=== PATIENT | female | born 1985 | race Hispanic/Latino ===

== ENCOUNTER 2018-11-10 16:44 | Emergency (ER) | payer SELFPAY ==
--- NOTE | 2018-11-10 17:01 | ED.PDOC ---
History of Present Illness - General Chief Complaint: Abdominal Pain Stated Complaint: abdominal pain Time Seen by Provider: 11/10/18 16:50 Information Source: patient, family Exam Limitations: no limitations - History of Present Illness Initial Comments: Sherrie Arzate 33 y/o female brought by friend to ER after she had right sided dull abdominal pain about 1-2 hours ago and also had been having brownish vaginal discharge today.No N/V/D,no hematuria,no diarrhea.Stated had positive test using (OTC) test.Her LMP-27 Sep 2018;[id number] RIA 03 Jul 2019;6 weeks EGA Abdominal Pain Onset Location: RUQ, RLQ Pain Radiation: no radiation Quality: moderate Timing/Duration: 1-3 hours Improving Factors: nothing Worsening Factors: nothing Associated Symptoms: other - see hpi Review of Systems - Review of Systems Gastrointestinal/Abdominal: States: see HPI All other Systems: Reviewed and Negative, No Change from Baseline Past Medical History (General) - Patient Medical History Hx Hypertension: No Hx Thyroid Disease: No Surgical History: no surgical history - Female History Patient is a Female of Child Bearing Age (10 -59 yrs old): Yes Hx Last Menstrual Period: 09/27/18 Patient : Yes Expected Date of Delivery:: 07/03/19 Hx Gestational Age: 6 - weeks Family Medical History - Family History Mother Family History: No Known Physical Exam - Physical Exam General Appearance: Alert, Comfortable, No apparent distress Eyes, Ears, Nose, Throat Exam: normal ENT inspection, pharynx normal Neck: supple, normal inspection Respiratory: lungs clear, normal breath sounds, no respiratory distress Cardiovascular/Chest: normal peripheral pulses, regular rate, rhythm, no murmur Peripheral Pulses: No deficit Gastrointestinal/Abdominal: soft, tenderness - right side abdomen Pelvic Exam: discharge - whitish, tender adnexa - right side Back Exam: no CVA tenderness, no vertebral tenderness Extremity: no pedal edema, no calf tenderness Neurologic: alert, oriented x 3 Skin Exam: normal color, warm/dry Progress - Progress Progress: 11/10/18 18:39 Vital Signs - 8 hr 11/10/18 11/10/18 16:45 17:45 Temperature 98.2 F 98.9 F Pulse Rate [ 79 72 Left Arm] Respiratory 16 16 Rate Blood Pressure 120/71 106/66 [Left Arm] O2 Sat by Pulse 100 100 Oximetry - Results/Orders Results/Orders: 11/10/18 17:32 Urine Culture Stat Laboratory Results - last 24 hr 11/10/18 11/10/18 11/10/18 17:25 17:25 17:25 WBC 6.4 RBC 4.52 Hgb 11.4 L Hct 35.6 L MCV 78.9 L MCH 25.3 L MCHC 32.1 L RDW 15.5 H Plt Count 204 MPV 8.0 Absolute Neuts (auto) 4.00 Absolute Lymphs (auto) 1.80 Absolute Monos (auto) 0.50 Absolute Eos (auto) 0.10 Absolute Basos (auto) 0.00 Neutrophils % 63.2 Lymphocytes % 27.7 Monocytes % 7.6 Eosinophils % 1.1 Basophils % 0.4 Sodium 138 Potassium 3.6 Chloride 108 Carbon Dioxide 21 Anion Gap 12.6 BUN 10 Creatinine 0.69 BUN/Creatinine Ratio 14.5 Random Glucose 96 Serum Osmolality 274.6 L Calcium 8.8 Total Bilirubin 0.4 AST 16 ALT 14 Alkaline Phosphatase 60 Serum Total Protein 7.2 Albumin 4.2 Globulin 3.0 Albumin/Globulin Ratio 1.4 Serum HCG, Qual Positive Beta HCG, Quant Urine Color Urine Appearance Urine pH Ur Specific [place] Urine Protein Urine Glucose (UA) Urine Ketones Urine Blood Urine Nitrite Urine Bilirubin Urine Urobilinogen Ur Leukocyte Esterase Urine RBC Urine WBC Ur Epithelial Cells Urine Bacteria Patient ABO/Rh 11/10/18 11/10/18 11/10/18 17:25 17:30 17:32 WBC RBC Hgb Hct MCV MCH MCHC RDW Plt Count MPV Absolute Neuts (auto) Absolute Lymphs (auto) Absolute Monos (auto) Absolute Eos (auto) Absolute Basos (auto) Neutrophils % Lymphocytes % Monocytes % Eosinophils % Basophils % Sodium Potassium Chloride Carbon Dioxide Anion Gap BUN Creatinine BUN/Creatinine Ratio Random Glucose Serum Osmolality Calcium Total Bilirubin AST ALT Alkaline Phosphatase Serum Total Protein Albumin Globulin Albumin/Globulin Ratio Serum HCG, Qual Beta HCG, Quant 8367.0 H Urine Color Yellow Urine Appearance Clear Urine pH 5.5 Ur Specific [place] <= 1.005 Urine Protein Negative Urine Glucose (UA) Negative Urine Ketones 15 H Urine Blood Moderate H Urine Nitrite Negative Urine Bilirubin Negative Urine Urobilinogen 0.2 Ur Leukocyte Esterase Negative Urine RBC 5-10 H Urine WBC 10-20 H Ur Epithelial Cells 3-5 Urine Bacteria 3+ H Patient ABO/Rh O POSITIVE Departure - Departure Clinical Impression: with 6 completed weeks gestation Abdominal pain Qualifiers: Abdominal location: right lower quadrant Qualified Code(s): R10.31 - Right lower quadrant pain Urinary tract infection Qualifiers: Urinary tract infection type: site unspecified Hematuria presence: without hematuria Qualified Code(s): N39.0 - Urinary tract infection, site not specified Time of Disposition: 18:48 Disposition: Transfer to Hospital Departure Forms: ED Discharge - Pt. Copy, Patient Portal Self Enrollment Instructions: DI for Abdominal Pain-Adult Referrals: MOLLY BYRNES [Nurse Practitioner] - 1-2 Weeks Prescriptions: Sulfa/Trimeth 800/160 (Ds) Tab [Bactrim DS] 1 tablet PO BID 7 Days #14 tab Home Medications: Ambulatory Orders Sulfa/Trimeth 800/160 (Ds) Tab [Bactrim DS] 1 tablet PO BID 7 Days #14 tab 11/10/18 Transfer to Outside Facility - Transfer Information Accepting Provider:: Dr. Greg Bonilla Accepting Facility: [facility] - patient will go by POV Reason for Transfer: required specialist not available - obstetrics
[2018-11-10 19:12] VITALS: BP 107/54
[2018-11-10 19:51] VITALS: TEMP 98.2; O2SAT 100
== END 2018-11-10 19:44 | disposition short-term general hospital (02) ==
LOC: ER 16:44
DX: O23.41 Unspecified infection of urinary tract in pregnancy, first trimester (principal); O99.89 Other specified diseases and conditions complicating pregnancy, childbirth and the puerperium; R10.31 Right lower quadrant pain; Z3A.01 Less than 8 weeks gestation of pregnancy